=== PATIENT | female | born 1990 | race Caucasian/White ===

== ENCOUNTER 2022-03-04 23:27 | Emergency (ER) | payer BC, SELFPAY ==
[2022-03-04 23:39] VITALS: BP 135/89; PULSE 95; RESP 18; TEMP 36.9; O2SAT 99; BMI 23.4
--- NOTE | 2022-03-05 00:42 | ED.GENADULT ---
HPI - General Adult General Chief complaint: Vaginal Bleeding Stated complaint: Vaginal Bleeding post c section, rash Time Seen by Provider: 03/05/22 00:05 Source: patient Mode of arrival: ambulatory History of Present Illness HPI narrative: 31-year-old 3 weeks post primary presents for vaginal bleeding. She reports that she felt the urge to urinate and went to the bathroom, did urinate and then felt passage of vaginal material, looked into the toilet and reports that she passed large amount of long blood clot, says that it felt like a bowel movement. She brings me pictures and to quantify, this is approximately 1 cm wide, 4-5 cm long stringy clot. Since then, she states that she has felt vaginal bleeding after her bleeding had ceased after the for the last week or so. No increased activity, no trauma or injury. She had a low-grade fever a couple of days ago that went away spontaneously, nothing since. No dysuria, no shortness of breath, no other systemic symptoms. Appetite has been fine, no bowel changes. No fundal tenderness. No drainage from incision. Reports she has a rash since 2 days ago, was evaluated by her primary doctor for similar rash last week, applied some steroid cream and it seemed to improve and now has a new rash. On specific questioning, it sounds characteristically similar to the last rash. She did call the nurse triage line and they urged her to be evaluated. Is not try any interventions prior to coming to the emergency department. Past medical history she states otherwise benign, no major long-term health problems. She was started on nifedipine for elevated blood pressures and remains on this with good blood pressure control. Her only prior surgery is the primary for her twin delivery. Socially she denies any intoxication, impairing substances or anticoagulant use. No pertinent travel. ROS is otherwise negative times 15 systems. Related Data Home Medications Medication Instructions Recorded Confirmed nifedipine 30 mg tablet,extended 30 mg PO DAILY 03/05/22 03/05/22 release Allergies Allergy/AdvReac Type Severity Reaction Status Date / Time No Known Allergies Allergy Verified 09/04/21 13:02 [facility] Medical History (Updated 03/05/22 @ 02:13 by Anjali Garcia MD) History of miscarriage Migraine headache with aura Nausea and vomiting during Retina hole Surgical History (Updated 03/05/22 @ 00:47 by Jarod Lucia RN) History of dilation and curettage History of eye surgery History of wisdom tooth extraction Social History Smoking Status: Never smoker Do you use any of these nicotine containing products: None Second hand tobacco smoke exposure: No How often do you have a drink containing alcohol: never How often do you have six or more drinks on one occasion: Never AUDIT-C Alcohol total score: 0 Non-prescribed substance use: denies use Exam Const: Vital Signs, click to edit/add: Vital Signs - 24 hr 03/04/22 23:39 03/05/22 01:32 Temperature 98.4 F 98.0 F Pulse Rate [Right Pulse Oximeter] 95 89 Respiratory Rate 18 18 Blood Pressure [Ri ght Upper Arm] 135/89 125/79 Pulse Oximetry 99 99 Oxygen Delivery Me thod Room Air Room Air Documenting provider has reviewed patient's vital signs: yes Common normals: no apparent distress General appearance: cooperative, comfortable and well kempt HENMT: Common normals: normocephalic Head and scalp: normocephalic Face and sinus: normal facial exam Neck & C-Spine: Common normals: no lymphadenopathy Resp: Common normals: normal respiratory effort and no use of accessory muscles Effort & inspection: able to speak in complete sentences Cardio: Common normals: regular rate, regular rhythm, S1 normal heart sound, S2 normal heart sound, no murmurs and peripheral pulses 2+ throughout Rate: regular rate Rhythm: regular rhythm Heart sounds: S1 normal and S2 normal Peripheral pulses: pulses 2+ throughout GI: Common normals: Normal to inspection, nondistended, normoactive bowel sounds present, soft to palpation, non-tender and no hepatosplenomegaly Palpation: soft and no hepatosplenomegaly Other: Pfannenstiel incision healing well, no redness, no drainage. Fundus is firm, deep in the pelvis, nontender. : Other: Normal external genitalia, brown discharge noted from closed cervix. Medium consistency but no clots. No odor, cervical motion tenderness or other abnormality. Extremity: Common normals: normal to inspection and normal capillary refill Psych: Appearance: well kempt Insight: insight good Judgement: judgment good Skin: Narrative: Papular rash on anterior abdomen and inner thighs, consistent with pupps Course Vital Signs Vital signs: Initial Vital Signs Temperature 98.4 F 03/04/22 23:39 Temperature Source Temporal Artery Scan 03/04/22 23:39 Pulse Rate 95 03/04/22 23:39 Respiratory Rate 18 03/04/22 23:39 Blood Pressure 135/89 03/04/22 23:39 Blood Pressure Mean 104 03/04/22 23:39 Blood Pressure Position Sitting 03/04/22 23:39 Pulse Oximetry 99 03/04/22 23:39 Oxygen Delivery Method 03/04/22 23:39 Vital Signs Temperature 98.4 F 03/04/22 23:39 Pulse Rate 95 03/04/22 23:39 Respiratory Rate 18 03/04/22 23:39 Blood Pressure 135/89 03/04/22 23:39 Pulse Oximetry 99 03/04/22 23:39 Oxygen Delivery Method 03/04/22 23:39 Temperature 98.0 F 03/05/22 01:32 Pulse Rate 89 03/05/22 01:32 Respiratory Rate 18 03/05/22 01:32 Blood Pressure 125/79 03/05/22 01:32 Pulse Oximetry 99 03/05/22 01:32 Oxygen Delivery Method 03/05/22 01:32 Medical Decision Making MDM Narrative Medical decision making narrative: Differential diagnosis including endometritis, retained products of conception, hemorrhage, foreign body, other abnormalities. Examined pictures of the clot she provided, small and not overly concerning. Exam is reassuring overall. CBC, hCG, CRP recommended. Awaiting lab results. If no leukocytosis, elevated hCG of the other abnormality, would recommend outpatient OB follow-up. If elevated, will consult our OB providers. Update: Labs reassuring, no increased bleeding reported by patient. Findings reviewed with her. Recommend conservative management, she will contact her Ob provider in the morning to update with details and look for any further recommendations. Lab Data Lab results reviewed: Yes I reviewed the patient's lab results Lab results narrative: Labs reassuring. Labs: Lab Results 03/05/22 03/05/22 Range/Units 01:15 01:15 WBC 8.05 (4.50-11.00) K/uL RBC 4.46 (4.00-5.20) m/uL Hgb 13.3 (12.0-16.0) gm/dL Hct 40.4 (33.0-51.0) % MCV 91 (80-100) fL MCH 30 (26-34) pg MCHC 33 (32-36) gm/dL RDW Coeff of Irma 12.2 (11.5-15.5) % Plt Count 313 (140-440) K/uL Neut % (Auto) 69.4 (42.0-72.0) % Lymph % (Auto) 20.4 (20-44) % [place] % (Auto) 5.8 (0.0-11.0) % Eos % (Auto) 2.9 (0.0-7.0) % Baso % (Auto) 0.4 (0.0-3.0) % Neut # (Auto) 5.59 (1.7-7.0) K/uL Lymph # (Auto) 1.64 (0.90-2.90) K/uL [place] # (Auto) 0.50 (0.00-0.90) K/UL Eos # (Auto) 0.23 (0.00-0.50) K/uL Baso # (Auto) 0.03 (0.00-0.30) K/uL C-Reactive Protein 1.6 H (0.5-1.0) mg/dL HCG, Quant 7.02 mIU/mL Discharge Plan Discharge Clinical Impression: bleeding Patient Disposition: Home, Self-Care Condition: Stable Instructions: Bleeding (ED) Additional Instructions: There are no signs of any dangerous bleeding tonight. 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 May increase again with increased activity. Is okay to use Tylenol and/or ibuprofen as needed for cramping. Fevers would not be expected, please call your OB if these occur. Please call your Ob provider and let her know that you were evaluated in the emergency department overnight and nothing concerning was found. If she has any additional recommendations, please follow those. It is okay to resume all previously approved activities. Activity Level: No Restrictions Discharge Diet: Regular Prescriptions: No Action nifedipine 30 mg tablet extended release 30 mg PO DAILY Follow Up/Referrals: Provider,Not a Local [Referring] - Stand Alone Forms: [facility] Info Instructions
[2022-03-05 01:29] LABS: Basophils Absolute Auto 0.03 K/uL (0.00-0.30); Basophils Percent Auto 0.4 % (0.0-3.0); Eosinophils Absolute Auto 0.23 K/uL (0.00-0.50); Eosinophils Percent Auto 2.9 % (0.0-7.0); Hematocrit 40.4 % (33.0-51.0); Hemoglobin* 13.3 gm/dL (12.0-16.0); Immature Granulocytes Abs Auto 0.09 K/uL (0.00-0.30); Immature Granulocytes Pct Auto 1.1 %; Lymphocytes Absolute Auto 1.64 K/uL (0.90-2.90); Lymphocytes Percent Auto 20.4 % (20-44); Mean Corpuscular HGB Conc 33 gm/dL (32-36); Mean Corpuscular Hemoglobin 30 pg (26-34); Mean Corpuscular Volume 91 fL (80-100); Monocytes Percent Auto 5.8 % (0.0-11.0); Neutrophils Absolute Auto 5.59 K/uL (1.7-7.0); Neutrophils Percent Auto 69.4 % (42.0-72.0); Platelet Count* 313 K/uL (140-440); RDW Coefficient of Variation % 12.2 % (11.5-15.5); Red Blood Count 4.46 m/uL (4.00-5.20); White Blood Count* 8.05 K/uL (4.50-11.00)
[2022-03-05 01:32] VITALS: BP 125/79; PULSE 89; RESP 18; TEMP 36.7; O2SAT 99
[2022-03-05 01:32] LABS: Slide Review Reflex No
[2022-03-05 01:47] LABS: C Reactive Protein* 1.6 mg/dL (0.5-1.0)
[2022-03-05 02:01] LABS: HCG Quantitative* 7.02 mIU/mL
[2022-03-05 02:21] VITALS: BP 125/79; PULSE 89; RESP 18; TEMP 36.7
== END 2022-03-05 02:21 | disposition home or self-care (01) ==
PROVIDERS: Emergency Provider Family Medicine; PCP Family Medicine
DX: O72.1 Other immediate postpartum hemorrhage (principal)
CPT/HCPCS: 36415; 84702; 85025; 86140; 99283

== ENCOUNTER 2022-10-15 13:52 | Outpatient (CLI) | payer MEDICAID, SELFPAY ==
--- NOTE | 2022-10-15 14:00 | CRLHL7_ITS ---
For Patients: As a result of the Cures Act, medical imaging exams and procedure reports are released immediately into your electronic medical record. You may view this report before your referring provider. If you have questions, please contact your health care provider. INDICATION: First trimester scan, establish dates. COMPARISON: None. TECHNIQUE: Real-time frazier-scale imaging of the pelvis was performed. FINDINGS: Sonographic imaging demonstrates a single living intrauterine gestation. The embryo demonstrates a regular cardiac rate measuring 176 beats per minute. The embryo`s crown-rump length measurement of 2.6 cm corresponds to a gestational age of 9 weeks 3 days with a sonographic due date of 05/17/2023. There is a normal-appearing yolk sac. There are no gross abnormalities noted within the embryo at this early state of development. The gestational sac has a normal appearance. There is no evidence of a perigestational hemorrhage. The amount of fluid within the sac appears appropriate for gestational age. The cervix is closed. The myometrium appears normal. The ovaries are of normal size. Corpus luteal cyst left ovary. There are no suspicious fluid collections noted in the cul-de-sac. IMPRESSION: Normal first trimester OB ultrasound exam. Gestational age calculated at 9 weeks 3 days with a sonographic due date of 05/17/2023. Dictated by Dominguez Pelaez MD @ 10/15/2022 2:40:35 PM (Electronically Signed)
== END 2022-10-15 13:53 | disposition home or self-care (01) ==
LOC: US 13:54
PROVIDERS: PCP Family Medicine; Visit Provider Physician Assistant
DX: Z34.91 Encounter for supervision of normal pregnancy, unspecified, first trimester (principal); Z3A.08 8 weeks gestation of pregnancy
CPT/HCPCS: 76801; 82565; 82570; 84156; 84450; 84460; 84520; 86592; 86703; 86762; 86787; 86803; 86850; 86900; 86901; 87086; 87340; 87491; 87591

== ENCOUNTER 2022-10-22 14:26 | Outpatient (CLI) | payer OTHER, SELFPAY | END 2022-10-22 14:27 | disposition home or self-care (01) | LOC: NFLDREF 10-25 09:24 | PROVIDERS: PCP Family Medicine; Referring Provider Family Medicine; Visit Provider Obstetrics & Gynecology | DX: Z34.90 Encounter for supervision of normal pregnancy, unspecified, unspecified trimester (principal) | CPT/HCPCS: 82570; 84156 ==

== ENCOUNTER 2022-11-10 11:52 | Outpatient (CLI) | payer OTHER, SELFPAY | END 2022-11-10 11:53 | disposition home or self-care (01) | PROVIDERS: PCP Family Medicine; Visit Provider Obstetrics & Gynecology | DX: Z34.91 Encounter for supervision of normal pregnancy, unspecified, first trimester (principal); Z3A.13 13 weeks gestation of pregnancy | CPT/HCPCS: 84450; 84460 ==

== ENCOUNTER 2023-01-04 12:59 | Outpatient (CLI) | payer OTHER, SELFPAY ==
--- NOTE | 2023-01-04 13:00 | CRLHL7_ITS ---
For Patients: As a result of the Century Cures Act, medical imaging exams and procedure reports are released immediately into your electronic medical record. You may view this report before your referring provider. If you have questions, please contact your health care provider. INDICATION: Evaluate anatomy. COMPARISON: 10/15/2022 TECHNIQUE: Real time frazier scale imaging of the fetus was performed as well as color Doppler analysis of the umbilical vessels. FINDINGS: Sonographic imaging demonstrates a single living intrauterine gestation. Fetus demonstrates a regular cardiac rate of 150 beats per minute. Fetus has a vertex position. The placenta lies fundal posterior without evidence of placenta previa. The edge of the placenta is located 5.9 cm from the internal cervical os. Amniotic fluid volume appears normal. Single deepest vertical pocket: 4.6 cm. The cervix is closed and measures 3.4 cm in length. The composite ultrasound gestational age is calculated at 20 weeks 5 days with an estimated sonographic due date of 05/19/2023. The estimated weight is 362 grams which lies at the 23rd %. The following biometric measurements were obtained: Biparietal diameter: 5.0 cm/21 weeks 1 day 52nd% Head circumference: 18.2 cm/20 weeks 4 days 23rd% Abdominal circumference: 15.6 cm/20 weeks 5 days 34th% Femur length: 3.3 cm/20 weeks 2 days 20th% The HC/AC ratio measures: 1.17 range (1.06-1.25) On anatomic survey, there is a normal appearance of the cerebral ventricles, cavum septi pellucidi, cisterna magna and cerebellum. The nose, lips, and facial profile appear normal. The cervical, thoracic and lumbar spine are well visualized and appear normal. There is a normal four-chamber heart view and the left and right ventricular outflow tracts appear normal. The diaphragm and stomach appear normal. The kidneys and bladder also appear normal. There is a normal three-vessel cord and cord insertion site. The four extremities appear normal. IMPRESSION: Normal OB ultrasound exam with concordance of clinical and sonographic dating. No intrinsic abnormalities noted on anatomic survey. Dictated by Dominguez Pelaez MD @ 01/06/2023 10:06:27 AM (Electronically Signed)
== END 2023-01-04 13:00 | disposition home or self-care (01) ==
LOC: US 12:59
PROVIDERS: PCP Family Medicine; Visit Provider Obstetrics & Gynecology
DX: Z34.92 Encounter for supervision of normal pregnancy, unspecified, second trimester (principal); Z3A.20 20 weeks gestation of pregnancy
CPT/HCPCS: 76805

== ENCOUNTER 2023-03-01 09:01 | Outpatient (CLI) | payer OTHER, SELFPAY | END 2023-03-01 09:02 | disposition home or self-care (01) | LOC: NFLDREF 03-02 06:29 | PROVIDERS: PCP Family Medicine; Referring Provider Family Medicine; Visit Provider Obstetrics & Gynecology | DX: Z34.90 Encounter for supervision of normal pregnancy, unspecified, unspecified trimester (principal) | CPT/HCPCS: 86592; 86850 ==

== ENCOUNTER 2023-03-01 09:54 | Outpatient (CLI) | payer OTHER, SELFPAY ==
--- NOTE | 2023-03-01 10:15 | CRLHL7_ITS ---
For Patients: As a result of the Century Cures Act, medical imaging exams and procedure reports are released immediately into your electronic medical record. You may view this report before your referring provider. If you have questions, please contact your health care provider. INDICATION: Third trimester scan, evaluate growth. Measuring small for dates. COMPARISON: 01/04/2023 TECHNIQUE: Real time frazier scale imaging of the fetus was performed. FINDINGS: Sonographic imaging demonstrates a single living intrauterine gestation. Fetus demonstrates a regular cardiac rate of 149 beats per minute. Fetus has a rivera breech position. The placenta lies left posterior. Amniotic fluid volume appears normal and there is a single deepest vertical pocket: 4.9 cm. The estimated weight is 1308gm which lies at the 34th %. On the prior OB ultrasound exam dated 01/04/2023 the estimated weight was at the 23rd%. BPD 80th percentile. HC 45th percentile. AC 43rd percentile. FL 16th percentile. The HC/AC ratio measures 1.11 range (0.98-1.20). Placental fuentes noted adjacent to the cord insertion. IMPRESSION: Sonographic gestational age 29 weeks 3 days and sonographic due date 05/14/2023. Good correlation with dates. Normal interval growth. Estimated weight 34th percentile. Abdominal circumference 43rd percentile. Dictated by Dominguez Pelaez MD @ 03/01/2023 12:05:10 PM (Electronically Signed)
== END 2023-03-01 09:55 | disposition home or self-care (01) ==
LOC: US 09:55
PROVIDERS: PCP Family Medicine; Visit Provider Obstetrics & Gynecology
DX: O36.5930 Maternal care for other known or suspected poor fetal growth, third trimester, not applicable or unspecified (principal); Z3A.29 29 weeks gestation of pregnancy
CPT/HCPCS: 76816; 86850

== ENCOUNTER 2023-04-08 09:06 | Outpatient (CLI) | payer OTHER, SELFPAY ==
--- NOTE | 2023-04-08 09:15 | CRLHL7_ITS ---
For Patients: As a result of the Century Cures Act, medical imaging exams and procedure reports are released immediately into your electronic medical record. You may view this report before your referring provider. If you have questions, please contact your health care provider. INDICATION: Uterine size-date discrepancy COMPARISON: 03/01/2023 TECHNIQUE: Real time frazier scale imaging of the fetus was performed. FINDINGS: Sonographic imaging demonstrates a single living intrauterine gestation. Fetus demonstrates a regular cardiac rate of 142 beats per minute. Fetus has a vertex position. The placenta lies left posterior. Amniotic fluid volume appears lower limits of normal and there is a single deepest vertical pocket: 2.4 cm. SONALI 6.3 cm. The estimated weight is 2556gm which lies at the 61st %. On the prior OB ultrasound exam dated 03/01/2023 the estimated weight was at the 34th%. BPD 97th percentile. HC 40th percentile. AC 80th percentile. FL 14th percentile. The HC/AC ratio measures 1.00 range (0.93-1.10). IMPRESSION: Sonographic gestational age 35 weeks 2 days and sonographic due date of 04/30 12/21. Sonographic age 6 days ahead of the clinical age. Estimated weight 61st percentile. Abdominal circumference 80th percentile. Lower limits of normal amniotic fluid with SONALI 6.3 cm. Dictated by Dominguez Pelaez MD @ 04/08/2023 12:06:23 PM (Electronically Signed)
== END 2023-04-08 09:07 | disposition home or self-care (01) ==
LOC: US 09:07
PROVIDERS: PCP Family Medicine; Visit Provider Obstetrics & Gynecology
DX: O36.63X0 Maternal care for excessive fetal growth, third trimester, not applicable or unspecified (principal); Z3A.35 35 weeks gestation of pregnancy
CPT/HCPCS: 76816

== ENCOUNTER 2023-04-25 13:25 | Outpatient (CLI) | payer OTHER, SELFPAY ==
[2023-04-26 15:46] LABS: Strep B DNA Probe Negative (Negative)
[2023-04-26 16:07] LABS: Strep B Susceptibility Needed? No
== END 2023-04-25 13:26 | disposition home or self-care (01) ==
LOC: NFLDREF 13:25
PROVIDERS: PCP Family Medicine; Visit Provider Obstetrics & Gynecology
DX: Z34.93 Encounter for supervision of normal pregnancy, unspecified, third trimester (principal)
CPT/HCPCS: 87081; 87653

== ENCOUNTER 2023-05-04 08:43 | Outpatient (CLI) | payer MEDICAID, SELFPAY ==
--- NOTE | 2023-05-04 08:45 | US_ITS ---
Patient: RICHA ALEJANDRE Facility:?[facility] Patient ID:?[id number] Site Patient ID:?[id number]. Site :?[id number] Study:?US-OB Pelvis OB F/U-05/04/2023 9:45:28 AM Ordering Physician:Shala Red Final Report: INDICATION: Third trimester scan, evaluate growth. COMPARISON: 04.28.23 TECHNIQUE: Real time frazier scale imaging of the fetus was performed. FINDINGS: Sonographic imaging demonstrates a single living intrauterine gestation. Fetus demonstrates a regular cardiac rate of 163 beats per minute. Fetus has a vertex position. The placenta lies left anterior and posterior without evidence of placenta previa. Amniotic fluid volume appears lower limits of normal and there is a single deepest vertical pocket: 2.4 cm. SONALI 7.0 cm. The estimated weight is 3433gm which lies at the 66th %. On the prior OB ultrasound exam dated 04/08/2023 the estimated weight was at the 61st%. BPD 96th percentile. HC 85th percentile. AC 80th percentile. FL 3rd percentile. The HC/AC ratio measures 1.01 range (0.88-1.06). IMPRESSION: Sonographic gestational age 38 weeks 4 days and sonographic due date of 05/14/2023. Normal interval growth. Good correlation with dates. Estimated weight is 66th percentile. Abdominal circumference 80th percentile. Dictated by Dominguez Pelaez MD @ 05/04/2023 11:42:41 AM Signed by:?Dominguez Pelaez MD @05/04/2023 11:42:41 AM (Electronic Signature)
== END 2023-05-04 08:44 | disposition home or self-care (01) ==
LOC: US 08:43
PROVIDERS: PCP Family Medicine; Visit Provider Obstetrics & Gynecology
DX: Z34.93 Encounter for supervision of normal pregnancy, unspecified, third trimester (principal); Z3A.38 38 weeks gestation of pregnancy
CPT/HCPCS: 76816

== ENCOUNTER 2023-05-12 05:12 | Inpatient (IN) | payer MEDICAID, SELFPAY ==
[2023-05-12] VITALS (34 sets, daily range): BP systolic 97–152; BP diastolic 55–84; PULSE 78–116; RESP 16–18; TEMP 36.4–37.1; O2SAT 95–100; BMI 25.4
[2023-05-12 06:00] LABS: Basophils Absolute Auto 0.02 K/uL (0.00-0.30); Basophils Percent Auto 0.2 % (0.0-3.0); Eosinophils Absolute Auto 0.07 K/uL (0.00-0.50); Eosinophils Percent Auto 0.8 % (0.0-7.0); Hematocrit 38.9 % (33.0-51.0); Hemoglobin* 13.5 gm/dL (12.0-16.0); Immature Granulocytes Abs Auto 0.11 K/uL (0.00-0.30); Immature Granulocytes Pct Auto 1.2 %; Lymphocytes Percent Auto 16.1 % (20-44); Mean Corpuscular HGB Conc 35 gm/dL (32-36); Mean Corpuscular Hemoglobin 32 pg (26-34); Mean Corpuscular Volume 91 fL (80-100); Monocytes Percent Auto 6.6 % (0.0-11.0); Neutrophils Percent Auto 75.1 % (42.0-72.0); Platelet Count* 166 K/uL (140-440); RDW Coefficient of Variation % 13.2 % (11.5-15.5); Red Blood Count 4.29 m/uL (4.00-5.20); White Blood Count* 9.06 K/uL (4.50-11.00)
[2023-05-12 06:02] LABS: Slide Review Reflex No
[2023-05-12] MEDS: LACTATED RINGERS 1000 ML 1,000 ML 800 ML IV ×2 (06:10→07:41)
--- NOTE | 2023-05-12 06:59 | W.PM.LDBA ---
Subjective History of Present Illness Time Seen by Provider: 07:11 Date Seen: 05/12/23 Narrative: Patient is being admitted to Labor and Delivery for scheduled repeat delivery. She is a 32 year old at 39.2 weeks gestation. Her full history and physical was dictated by Dr. Bateman on 05/04/23. Please see this for details. No interval changes since last time we spoke. Active movement. Denies Ctx, LOF, vaginal bleeding or abnormal vaginal discharge. Specific Issues/Plans 1. History of 02/10/2022: mono/di twins, short interpregnancy interval - Repeat delivery at 39 weeks, desires surgical sterilization - Will sign surgical sterilization at 28 weeks: 03/01/2023 2. History of hemorrhage, delayed, no transfusion 3. History of gestational hypertension (twin gestation) Baseline pre-E labs: pr/cr ratio 0.00, AST 42H, ALT 38H 24 hour urine for protein: 48 Consider repeating LFTS: AST: 39/ ALT: 25 Start ASA 81mg daily 11/10/22 4. Migraines 5. Nausea and vomiting Vitamin B6 and Unisom She alternated promethazine and Zofran with success last . 6. Size date discrepancy of fundal height - Growth scan on 03/01/23: EFW at the 34th percentile. AC at 43rd percentile. - Growth scan at 34 weeks 04/08/2023: Cephalic, posterior placenta, SDP 2.4 cm, SONALI 6.3 cm, EFW 2556 g = 61%, AC 80%, BPD 97%, HCT 40%, FL 14%. 7. RH negative Rhogam: 03/01/2023 8. Melanocytic skin lesion along previous incision. Plan for excision at time of repeat . Flu: 12/15/2022 Covid: 01/04/23 Tdap: 03/09/2023 OB - Problem Based A/P Additional Plan (1) Previous delivery affecting : Status: Acute (2) Melanocytic nevus: Status: Acute (3) : Status: Acute Plan - CS Consent The patient was consented for section and blood. She understands that the four main categories of risk include pain, bleeding, infection, and damage to surrounding structures. Regarding infection, she understands that we will be delivering appropriate antibiotics, however that the risk of infection following section still is approximately 5%. She understands that though the risk is very low that there is always a risk of damage to the bladder, uterus, ovaries, fallopian tubes, bowels, ureters, or even the fetus. She understands that most injuries can be addressed at the time of surgery, however, such an injury may require additional surgeries to fix (including hysterectomy). Lastly, she understands that a section carries a risk of bleeding, and that while this bleeding can be addressed with multiple medical and surgical modalities, that there is the possibility of needing a blood transfusion. She reports she would accept a blood transfusion. Lastly, she understands that a section does increase risks for future pregnancies and deliveries including, but not limited to, the risk of uterine rupture or placenta accreta. However, she will be getting bilateral salpingectomy today. Additionally, we will be removing to melanotic lesions at her incision site for pathologic assessment as they were new onset. - Plan: Will proceed with repeat delivery, bilateral salpingectomy, and skin biopsy. - Hgb/plt: 13.5/166 OB Exam Physical Exam Vital signs: Temp Pulse Resp BP 97.9 F 116 H 18 118/84 05/12/23 05:26 05/12/23 05:26 05/12/23 05:26 05/12/23 05:26 Narrative: Physical exam: General: No acute distress Psych: Alert and oriented x3, full affect HEENT: Normocephalic, atraumatic Lungs: Unlabored breathing Neuro: No focal deficit. Mentating appropriately Pelvic exam: Deferred
[2023-05-12] MEDS: CEFAZOLIN 2 GM INJ IVP (07:41)
[2023-05-12] MEDS: KETOROLAC 15 MG/ML inj IVP (08:19)
--- NOTE | 2023-05-12 08:26 | W.ANESCHARGE ---
Anesthesia Charges Start Date/Time Anesthesia Start Date: 05/12/23 Anesthesia Start Time: 07:15 Stop Date/Time Anesthesia Stop Date: 05/12/23 Anesthesia Stop Time: 08:45
--- NOTE | 2023-05-12 08:30 | P.OBPRC_ITS ---
Procedure Time Seen by Provider: 08:31 Date of procedure: 05/12/23 Will [facility] bill your pro fee for this procedure?: Yes Procedure Description: DELIVERY BY SECTION Date of Service: 05/12/23 Delivery time: 0748 Summary: Admitted for scheduled repeat delivery at 39.2 weeks, repeat lower uterine transverse section, bilateral salpingectomy, 2 skin lesion biopsies, Pfannenstiel, Closed with sutures, QBL 450 cc, no complications, Findings: Small 1 cm posterior fibroid noted. Otherwise, normal uterus. Normal bilateral ovaries and fallopian tubes. 8/9 Weight 3000 g. Primary Indication: 1. Previous delivery x1 2. Declined TOLAC 3. Undesired fertility 4. New onset of melanotic lesions on Pfannenstiel incision (3 lesions). Procedures: Primary Lower uterine transverse section Bilateral salpingectomy Skin biopsies x 2 (1. One lesion on right corner of Pfannenstiel 2. 2 lesions at midline of Pfannenstiel - removed together) Specimens Removed: Placenta Surgeon: Shala Reddy MD Software Quality Assurance Specialist: JOSE GUADALUPE Norris Anesthesia: Spinal, TAP Report: Prophylactic antibiotic, 2 g of Ancef was given before patient was taken to OR. After arrival to the operating room patient was placed in the supine position with left lateral tilt after administration of spinal anesthesia. Laparotomy A pfannenstiel incision was made through the anterior abdominal wall with #10 scalpel approximately 2 cm above the pubic symphysis. The incision was extended sharply with the #10 scalpel through the subcutaneous tissue to the level of fascia. The fascia was entered sharply with a #10 scalpel (Pfannenstiel) in the midline and extended in semi-elliptical fashion with Victor scissor. The underlying muscles were dissected off the overlying fascia by grasping the superior aspect of fascia with two nolvia clamps and blunt dissection was used along the midline. The fascia was further from rectus muscle with Victor scissor and/or cautery. In similar fashion, the lower aspect of fascia was also grasped with two Nolvia clamps and both blunt and sharp dissection was used to separate fascia from rectus muscle. The rectus muscles were in the midline bluntly with digits. The peritoneum was then entered bluntly. The peritoneal incision was then extended superiorly and inferiorly under direct visualization with care being taken to avoid bladder and bowel. Minimal filmy adhesions noted. The peritoneal incision was enlarged bluntly by lateral traction from the surgeon's and multimedia production assistant's hand. Glenn retractor was inserted into the abdomen. Delivery A bladder flap was developed by grasping with Monegasque forcep and enter with Metzenbaun scissor. Then sharp and blunt dissection with Metzenbaum scissor and fingers were performed. A low transverse hysterotomy was made then with #10 scalpel and extended laterally and cephalad with fingers in a low transverse fashion with Manu Joseph technique with care being taken to avoid injury to the fetus. The amniotic cavity (membrane) was then entered with spontaneous rupture of membrane, and the amniotic fluid was noted to be clear, fetus was delivered cephalic. With delivery of the baby, no extension was noted. Placenta was delivered spontaneously with steady traction on cord and manual separation of placenta from uterine wall. Closure Uterine cavity was cleaned after placental delivery with lap sponge x 2. The hysterotomy was closed in 1 layers with stitches using 0 vicryl with continuous locking stitches. Two ijwazf-xb-urptoy were placed for hemostasis (1 at the right hysterotomy angle and 1 at midline). Hemostasis was achieved as needed with electrocautery. The ovaries/tubes/uterine surface were evaluated. Attention was then turned towards the bilateral salpingectomy. The right fallopian tube was grasped with 2 Rossy's. The right fallopian tube was removed from the broad ligament using the hand-held LigaSure dissecting forceps starting at the fimbriated end of the tube. Sequential pedicles were then formed to the level of the cornua. The tube was then removed from the body. The left fallopian tube was removed in a similar manner. Excellent hemostasis was noted of all pedicles. Glenn retractor removed and hemostasis was confirmed again. Fascia was closed with running stitches using 0 PDS. Subcutaneous layer was irrigated. Hemostasis was checked for and found to be adequate. Attention was then turned towards the skin biopsies. Area of interest was removed with nery and Toni. The subcutaneous layer was closed with 1 interrupted mattress suture with 2-0 Vicryl at midline where the skin biopsy was taken. The skin was closed with 4-0 Vicryl subcuticular sutures. The incision was cleaned, Exofin applied, and Mepilex dressing placed. The procedure considered terminate at this time. Intraoperative Complications: None QBL: 450 cc Uterotonics: 30 units of Pitocin, 1 g of TXA Disposition: The patient tolerated the procedure well. She was recovered in obstetric PACU for close monitoring in stable condition, with a contracted uterus and normal transvaginal bleeding. The was sent to mother's bedside. The placenta was not sent to pathology. Specimens: 1. Bilateral fallopian tubes 2. Melanotic lesion skin biopsy #1 at right corner of the Pfannenstiel 3. Two melanotic lesions at midline of Pfannenstiel (removed together) Debrief with OR team performed and specimen reviewed at the conclusion of the procedure. total score - 1 minute: 8 total score - 5 minute: 9
--- NOTE | 2023-05-12 09:01 | P.NB_ITS ---
Nerve Block Nerve Block Time Seen by Provider: 08:32 Date Seen: 05/12/23 Type of block requested by surgeon for post-operative analgesia: TAP Side: bilateral Time out performed: Yes Verification of patient name: Yes Verification of date of : Yes Site marking: site marked Name of person performing procedure: Cristopher Continuous monitoring Was continuous monitoring of O2 sat, B/P, quality assurance monitor, recorded every 15 minutes?: Yes Procedure Checklist: sterile prep, needles and gloves Ultrasound guided. Images saved: Yes Medications given in 5ml increments after negative aspiration: Marcaine %: 0.25 mL: 30 Needle gauge: 20 and Exparel mL: 10 Patient tolerated procedure well: Yes Additional comments: Needle noted between internal oblique and transversus abdominus. Local spread visualized Block Charges Block Charge (with Pro Fee): TAP Bilateral Use of Ultrasound Machine for Block: Yes- US Guidance/pain block
--- NOTE | 2023-05-12 09:02 | W.ANESCHARGE ---
Anesthesia Charges Start Date/Time Anesthesia Start Date: 05/12/23 Anesthesia Start Time: 07:15 Stop Date/Time Anesthesia Stop Date: 05/12/23 Anesthesia Stop Time: 08:45
[2023-05-12] MEDS: LACTATED RINGERS 1000 ML 1,000 ML 125 ML IV (12:34)
[2023-05-12] MEDS: KETOROLAC 30 MG/ML inj IVP ×2 (14:33→20:25)
[2023-05-12] MEDS: ACETAMINOPHEN 500 MG TABLET 1000 MG PO (23:33)
[2023-05-13] VITALS (11 sets, daily range): BP systolic 98–132; BP diastolic 70–82; PULSE 78–92; RESP 16–18; TEMP 36.4–36.8; O2SAT 94–100
[2023-05-13] MEDS: KETOROLAC 30 MG/ML inj IVP ×2 (02:53→08:55)
[2023-05-13] MEDS: ACETAMINOPHEN 500 MG TABLET 1000 MG PO ×4 (05:44→23:57)
[2023-05-13 06:23] LABS: Hemoglobin* 12.5 gm/dL (12.0-16.0)
--- NOTE | 2023-05-13 07:23 | PM.OBPNVD1 ---
OB - PN:Subj Subjective Date Seen: 05/13/23 Narrative: Anjali is a 32 y.o. who was admitted to [facility] for repeat section. ?She had an uncomplicated .?The patient feels well. ?The pain is well controlled with current medications. ?She has no new complaints. ?She is breast feeding and reports things are going well.? the patient has done well.? Vitals have been stable.? She has remained afebrile.? Has a good appetite, is tolerating a general diet. ?She is voiding without difficulty.? She is passing gas and has not had a bowel movement.? She is ambulating and denies any dizziness.? Has small amount of rubra lochia. OB - PN: Obj Exam Physical Exam: Vital signs: Temp Pulse Resp BP Pulse Ox O2 Del Method 97.6 F 83 16 98/70 95 Room Air 05/13/23 05:46 05/13/23 05:46 05/13/23 05:46 05/13/23 05:46 05/13/23 05:46 05/13/23 05:46 Narrative: GENERAL APPEARANCE:? normal affect, alert, no distress MOOD:? appropriate CHEST:? clear to auscultation HEART:? regular rate and rhythm ABDOMEN:? soft, non-tender the uterine fundus is at Umbilicus, Midline and is appropriate for the stage of recovery. LOCHIA: scant EXTREMITIES:? normal and no edema Incision: Dressing in place; clean, dry, and intact Urinary Catheter Management: Urethral: Cath placed during this visit: yes, but has since been removed by the nurse Reason for continuing: decision to DC catheter Insertion date: 05/12/23 Insertion time: 07:38 Removal date: 05/12/23 Removal time: 16:45 OB - PN: Obj Data Labs Labs: Laboratory Results - last 24 hr 05/13/23 06:15 Hgb 12.5 OB - PN: A/P Delivery Assessment and Plan (1) care and examination immediately after delivery: Status: Acute (2) Lactating mother: Status: Acute (3) Status post delivery: Status: Acute Plan day: 1 Plan: routine care Comments: Routine postop care Hgb 12.5 May see if desired Discharge tomorrow at the earliest, may stay until the following day
[2023-05-13] MEDS: SODIUM CHLORIDE 0.9 % (FLUSH) 10 ML SYRINGE IVF (08:56)
[2023-05-13] MEDS: SIMETHICONE 80 MG TAB.CHEW PO ×2 (11:48→21:45)
[2023-05-13] MEDS: DOCUSATE SODIUM 100 MG CAPSULE PO (11:49)
[2023-05-13] MEDS: IBUPROFEN 600 MG TABLET PO ×2 (15:12→21:40)
[2023-05-13] MEDS: OXYCODONE 5 MG TABLET PO (21:45)
[2023-05-14 00:01] VITALS: BP 123/77; PULSE 90; RESP 18; TEMP 36.8; O2SAT 97
[2023-05-14] MEDS: IBUPROFEN 600 MG TABLET PO ×2 (03:42→09:48)
[2023-05-14] MEDS: OXYCODONE 5 MG TABLET PO ×2 (03:42→08:40)
[2023-05-14] MEDS: ACETAMINOPHEN 500 MG TABLET 1000 MG PO (05:48)
--- NOTE | 2023-05-14 08:11 | P.DS_ITS ---
DS: Providers Provider Time Seen by Provider: 08:11 Date Seen: 05/14/23 Date of admission: 05/12/23 05:12 Primary care physician: Shahida Zuñiga MD Admitting Clinician: Shala Reddy MD Attending Physician on discharge: Leslie Mcintyre MD Date of Discharge: 05/14/23 DS: Diagnosis Discharge Diagnosis (1) Status post delivery: Status: Acute Exam Narrative: Exam Narrative: See summary above Const: Vital Signs, click to edit/add: Vital Signs - 24 hr 05/13/23 09:37 05/13/23 16:22 05/13/23 18:43 Temperature 98.1 F 97.6 F 98.2 F Pulse Rate 93 Pulse Rate [Pulse Oximeter] 78 92 Respiratory Rate 18 18 16 Blood Pressure 122/85 Blood Pressure [Ri ght Arm] 132/82 115/78 Pulse Oximetry 94 100 98 Oxygen Delivery Me thod Room Air Room Air 05/14/23 00:01 Temperature 98.2 F Pulse Rate Pulse Rate [Pulse Oximeter] 90 Respiratory Rate 18 Blood Pressure Blood Pressure [Ri ght Arm] 123/77 Pulse Oximetry 97 Oxygen Delivery Me thod Room Air OB - DS: Summary Hospital Course Hospital Course: Hospital Course: Anjali was admitted to the hospital on 05/12/2023 for a sc heduled repeat low-transverse . Her surgery was uncomplicated. Her postoperative course was also uncomplicated. By postoperative day 1, she was tolerating a regular diet, ambulating without difficulty, passing flatus and pain was well controlled with oral pain medications. She would like to be discharged home today. She is exclusively and not having any difficulty. Labs: Preoperative hemoglobin 13.5, postoperative hemoglobin 12.5. Objective: General: Alert and oriented x3. Pleasant, woman in no acute distress. Vital signs: See EMR. Heart: Regular rate and rhythm without gallop, rub or murmur. Chest: Clear to auscultation bilaterally. Abdomen: Soft, nontender, nondistended with normal bowel sounds throughout. No CVA or flank tenderness. Fundus is firm 1 cm below the umbilicus in the midline. Incision(s): Clean, dry and intact w/ sutures and skin adhesive. Pelvic: Minimal vaginal bleeding, remainder of pelvic exam deferred. Extremities: No pain, edema, cyanosis or clubbing. Assessment: 32-year-old 2 para 2002 (has a set of identical twin girls) postoperative day 2 from a repeat low-transverse section doing well. Plan: 1. Discharge home today. 2. Activity restrictions reviewed with the patient. 3. Return to clinic to see Dr. Reddy for an incision check in 2-3 weeks. Peripartum Data Procedures: Procedures Operation Date: 05/12/23 07:15 Actual Procedure Side Surgeon p Repeat Section, Bilateral Tubal Ligation, Skin Biopsies Bilateral Shala B MD Barry Gender: Female Time Spent with Patient Time attestation: Total time spent providing and/or coordinating discharge services: Discharge Plan Discharge Disposition: Home, Self-Care Date of Admission: 05/12/23 05:12 Attending Provider on Discharge: Leslie Mcintyre Primary Care Provider: Shahida Zuñiga Condition: Stable Anticipated Discharge Date/Time: 05/14/23 10:00 Discharge Medications: New docusate sodium 100 mg Capsule 100 mg PO BID PRN (Reason: constipation) Qty: 100 0RF ibuprofen 600 mg Tablet 600 mg PO Q6H PRN (Reason: Pain) Qty: 30 0RF oxycodone 5 mg Tablet 5 mg PO TID PRN (Reason: Pain) Qty: 21 0RF Continued DHA 200 mg capsule 200 mg PO DAILY ondansetron 4 mg tablet,disintegrating 4 mg PO Q4-6H MDD 1-2 tablets PO Q 4-6 hours prn Qty: 30 2RF Rx Instructions: 1-2 tablets PO Q 4-6 hours prn. Discharge Orders: Discharge Order (Routine); Ordered 05/14/23 Ordered By: Leslie Mcintyre Patient Education: (DC) Additional Instructions: ACTIVITY RESTRICTIONS: * Nothing vaginally for 6 weeks: no tampons/intercourse * No driving while taking narcotic pain medication during the day. 1-2 weeks. * Lifting restriction: Maximum of 20 pounds for 6 weeks. * High impact or core exercises: 6 weeks. * Submerge the incision in water (bath/pool/fuentes): 2 weeks. * Off of work/school for a minimum of 8 weeks NO RESTRICTIONS for: * Walking * Going up/down stairs * Showering * Passenger in a motor vehicle Symptoms to report to doctor: -Bleeding that saturates more than one pad per hour ?-Passing clots larger than the size of a golf ball ?-Pain not relieved by prescribed medication ?-Fever above 100.4 degrees Fahrenheit ?-A foul vaginal odor ?-Difficulty in emotions, mood and functions ?-Thoughts of hurting yourself and/or ?-Painful, reddened area in your breast ?-Any drainage, redness or tenderness in your IV/epidural site ?-Severe headache that doesn't improve after taking medications ?-Changes in vision, including temporary loss of vision, blurred vision, and/or light sensitivity ?-Upper abdominal pain (usually under ribs on the right side) ?-Decrease in urination or painful, frequent urinating ?-Chest pain ?-Shortness of breath ?-Tenderness or pain with redness and/swelling in the calf(s) of your leg Follow-up: [facility]. [facility] to remove your dressing: incision check. 2. A 6 week visit for an annual physical exam with Dr. Zuñiga. consultation services are available to all mothers and babies for the first year after delivery.? To make an appointment, please call [phone]. Activity Detail: See above Discharge Diet: Regular Follow Up Appointments: Shala Reddy MD [Staff Physician] - Shahida Zuñiga MD [Primary Care Provider] - Forms: Capical Info Instructions
[2023-05-14 08:33] VITALS: BP 109/72; PULSE 77; RESP 16; TEMP 36.8; O2SAT 98
[2023-05-14] MEDS: DOCUSATE SODIUM 100 MG CAPSULE PO (08:40)
[2023-05-15 02:07] LABS: Rapid Plasma Reagin (RPR) Non Reactive (Non Reactive)
== END 2023-05-14 10:10 | disposition home or self-care (01) | DRG 540 ==
PROVIDERS: Admitting Provider Obstetrics & Gynecology; PCP Family Medicine; Visit Provider Obstetrics & Gynecology
PROC: 10D00Z1 Extraction of Products of Conception, Low, Open Approach (ICD-10-PCS; CPT 59514; principal; 2023-05-12 07:15)
DX: O34.211 Maternal care for low transverse scar from previous cesarean delivery (principal); Z3A.39 39 weeks gestation of pregnancy; Z30.2 Encounter for sterilization; O26.893 Other specified pregnancy related conditions, third trimester; Z67.41 Type O blood, Rh negative; D22.5 Melanocytic nevi of trunk; G89.18 Other acute postprocedural pain; Z86.32 Personal history of gestational diabetes; Z37.0 Single live birth
CPT/HCPCS: 01961; 01968; 36415; 36430; 64488; 76942; 85018; 85025; 85461; 86592; 86850; 86870; 86880; 86900; 86901; 88302; 88305; A9270; C9290; J0665; J0690; J1200; J1885; J2274; J2371; J2405; J2590; J2791; J7120

== ENCOUNTER 2023-07-29 14:26 | Outpatient (CLI) | payer MEDICAID, SELFPAY ==
[2023-07-29 18:03] LABS: Chlamydia DNA Amplified* NOT DETECTED (No Detected); GC DNA Amplified* NOT DETECTED (No Detected)
== END 2023-07-29 14:27 | disposition home or self-care (01) ==
LOC: NFLDREF 14:26
PROVIDERS: PCP Family Medicine; Visit Provider Registered Nurse
DX: Z11.3 Encounter for screening for infections with a predominantly sexual mode of transmission (principal)
CPT/HCPCS: 87491; 87591